=== PATIENT | female | born 1960 | race American Indian/Alaskan Native ===

== ENCOUNTER 2017-05-08 20:48 | Emergency (ER) | payer MEDICAID ==
[2017-05-08 21:08] VITALS: TEMP 98.4; BMI 25.0
[2017-05-08] MEDS ORDERED: Sodium Chloride 0.9% 1,000 ML IV STA (21:47)
--- NOTE | 2017-05-08 22:02 | ED PDOC ---
Arrival/HPI - General Chief Complaint: High Blood Pressure Time Seen by Provider: 05/08/17 21:13 Historian: Patient - History of Present Illness Narrative History of Present Illness (Text): 05/08/17 22:35 Abbey Ayala is a 56 year old female, whose past medical history includes hyperlipidemia and alcohol abuse, presents to the Emergency department complaining of lightheadedness and having pain on the left lateral side that is worse when she breathes and moves. Patient reports she had been feeling aggravated and agitated while walking to the store, while being near the fire department she felt weak as if she was about to pass out, but a jogger operator caught her. The jogger operator then took her blood pressure and was 190/60. Patient admits to drinking alcohol prior to arrival and when she arrived to the Emergency department she felt pain on the lateral left side and is worse with inhalation. She did not feel the pain before. Patient denies chest pain, shortness of breath, headache, fever, chills, cough, nausea, vomiting, diarrhea , abdominal pain, dizziness or lightheadedness. Time/Duration: Prior to Arrival Symptom Onset: Sudden Symptom Course: Unchanged Modifying Factors (Text): left lateral pain is worse with inhalation Context: Walking, Street Associated Symptoms (Text): weakness, lightheadedness, and left lateral pain Past Medical History - Provider Review Nursing Documentation Reviewed: Yes - Infectious Disease Hx of Infectious Diseases: None - Hematological/Oncological Hx Cancer: Yes (ovarian ca -- chemo) - Psychiatric Hx Substance Use: Yes - Anesthesia Hx Anesthesia: No Family/Social History - Physician Review Nursing Documentation Reviewed: Yes Family/Social History: Unknown Family HX Smoking Status: Current Some Days Smoker Hx Alcohol Use: Yes Frequency of alcohol use: Daily Hx Substance Use: Yes Substance used: heroine/cocaine -- last used 2 yrs ago Allergies/Home Meds Allergies/Adverse Reactions: Allergies No Known Allergies Allergy (Verified 05/08/17 21:08) Home Medications: Home Meds Medication Instructions Recorded Confirmed No Known Home Med 05/08/17 05/08/17 Review of Systems - Review of Systems Constitutional: Fatigue Eyes: absent: Vision Changes Respiratory: absent: SOB Cardiovascular: absent: Chest Pain Gastrointestinal: absent: Abdominal Pain, Diarrhea, Nausea, Vomiting Genitourinary Female: absent: Dysuria Musculoskeletal: Other (left lateral pain, worse with inhalation) Neurological: Other (lightheadedness). absent: Dizziness Physical Exam Vital Signs Reviewed: Yes Vital Signs Temp Pulse Resp BP Pulse Ox 05/09/17 00:29 89 17 147/86 99 05/08/17 21:26 107 H 18 136/82 97 05/08/17 21:07 98.4 F 110 H 18 127/81 97 Temperature: Afebrile Blood Pressure: Normal Pulse: Tachycardic Respiratory Rate: Normal Appearance: Positive for: Well-Appearing, Comfortable, Other (ETOH on breath) Pain Distress: None Mental Status: Positive for: Alert and Oriented X 3 - Systems Exam Head: Present: Atraumatic, Normocephalic Pupils: Present: PERRL Extroacular Muscles: Present: EOMI Conjunctiva: Present: Normal Mouth: Present: Moist Mucous Membranes Pharnyx: Present: Normal. No: ERYTHEMA, EXUDATE Neck: Present: Normal Range of Motion Respiratory/Chest: Present: Clear to Auscultation, Good Air Exchange, Tender to Palpation (ttp around the 7th rib in the left axillary line). No: Respiratory Distress, Accessory Muscle Use Cardiovascular: Present: Regular Rate and Rhythm, Normal S1, S2. No: Murmurs Abdomen: Present: Normal Bowel Sounds. No: Tenderness, Distention, Peritoneal Signs Back: Present: Normal Inspection Upper Extremity: Present: Normal Inspection. No: Cyanosis, Edema Lower Extremity: Present: Normal Inspection. No: Edema Neurological: Present: GCS=15, CN II-XII Intact, Speech Normal Skin: Present: Warm, Dry, Normal Color. No: Rashes Psychiatric: Present: Alert, Oriented x 3, Normal Insight, Normal Concentration Medical Decision Making ED Course and Treatment: 05/08/17 21:35 Impression: 56 year old female with lightheadedness and left lateral pain. Differential Diagnosis included but are not limited to: ETOH vs. Anxiety vs. Pulmonary embolism (less likely) Plan: -- EKG -- Chest X-ray -- Labs -- Urinalysis -- Toradol, Xanax, and Sodium Chloride -- Reassess and disposition. Progress Notes: EKG: Ordered, reviewed, and independently interpreted the EKG. Rate : 90 BPM Rhythm : NSR Interpretation : Normal interval, normal axis. No ST/T changes. 05/09/17 01:02 Patient with noted history with alcohol on breath and feeling dizzy as if about to pass out. EKG is normal and admits to feeling stressed. She was given toradol and xanax and IVF and is feeling much better. Etoh level was 201; other labs, including d-dimer and cardiac iso were normal. 05/09/17 01:04 Repeat vitals are normal and has a pmd. By [place] Syncope Rule, patient is safe for d/c to f/u pmd. Additionally, given the presence of alcohol, it is highly likely that the alcohol played a significant role in the near syncopal episode - ok for d/c. 05/09/17 01:11 Patient is fully sober for d/c and is being d/c with family. - Lab Interpretations Lab Results: 05/08/17 22:10 05/08/17 22:10 Lab Results 05/08/17 22:10: Alcohol, Quantitative 201 H 05/08/17 22:10: Sodium 142, Potassium 4.4, Chloride 97, Carbon Dioxide 29, Anion Gap 20, BUN 18, Creatinine 0.8, Est GFR ( Amer) > 60, Est GFR (Non- Af Amer) > 60, Random Glucose 76, Calcium 9.8, Magnesium 1.7, Total Bilirubin 1.0, AST 69 H, ALT 38, Alkaline Phosphatase 120, Lactate Dehydrogenase 517, Total Creatine Kinase 84, Troponin I 0.01, Total Protein 9.0 H, Albumin 4.7, Globulin 4.2, Albumin/Globulin Ratio 1.1, Lipase 63 05/08/17 22:10: Urine Color Yellow, Urine Appearance Clear, Urine pH 6.0, Ur Specific [place] >= 1.030, Urine Protein Trace H, Urine Glucose (UA) Negative, Urine Ketones Negative, Urine Blood Small H, Urine Nitrate Negative, Urine Bilirubin Negative, Urine Urobilinogen 0.2, Ur Leukocyte Esterase Negative, Urine RBC 0 - 2, Urine WBC 0 - 2, Ur Epithelial Cells 0 - 2, Urine Bacteria Few , Urine Other Mucus 05/08/17 22:10: PT 11.4, INR 1.06, APTT 27.5, D-Dimer, Quantitative 0.24 05/08/17 22:10: WBC 6.1, RBC 3.64, Hgb 12.7, Hct 37.0, MCV 101.6, MCH 34.9, MCHC 34.3, RDW 15.3 H, Plt Count 203, MPV 8.6, Gran % 35.8 L, Lymph % (Auto) 54.4 H, Nance % (Auto) 5.2, Eos % (Auto) 4.1, Baso % (Auto) 0.5, Gran # 2.19, Lymph # 3.3, Nance # 0.3, Eos # 0.3, Baso # 0.03 I have reviewed the lab results: Yes - RAD Interpretation Radiology Orders: 05/08/17 21:48 CHEST PORTABLE [RAD] Stat - EKG Interpretation Interpreted by ED Physician: Yes Type: 12 lead EKG - Medication Orders Current Medication Orders: Discontinued Medications Alprazolam (Xanax) 0.25 mg PO STAT STA PRN Reason: Protocol Stop: 05/08/17 21:47 Last Admin: 05/08/17 22:17 Dose: 0.25 mg Sodium Chloride (Sodium Chloride 0.9%) 1,000 mls @ 999 mls/hr IV .Q1H1M STA Stop: 05/08/17 22:47 Last Admin: 05/08/17 22:17 Dose: 999 mls/hr Ketorolac Tromethamine (Toradol) 30 mg IVP STAT STA Stop: 05/08/17 21:48 Last Admin: 05/08/17 22:17 Dose: 30 mg - Scribe Statement The provider has reviewed the documentation as recorded by the Scribe 05/08/2017 Claire Ching Provider Scribe Attestation: All medical record entries made by the Scribe were at my direction and personally dictated by me. I have reviewed the chart and agree that the record accurately reflects my personal performance of the history, physical exam, medical decision making, and the department course for this patient. I have also personally directed, reviewed, and agree with the discharge instructions and disposition. Disposition/Present on Arrival - Present on Arrival Any Indicators Present on Arrival: No History of DVT/PE: No History of Uncontrolled Diabetes: No Urinary Catheter: No History of Decub. Ulcer: No History Surgical Site Infection Following: None - Disposition Have Diagnosis and Disposition been Completed?: Yes Diagnosis: Alcohol abuse, Near syncope Disposition: HOME/ ROUTINE Disposition Time: 12:45 Patient Plan: Discharge Patient Problems: Current Active Problems Problem Status Onset Alcohol abuse Acute Near syncope Acute Condition: GOOD Discharge Instructions (ExitCare): Abuse of Alcohol (ED) Additional Instructions: Avoid alcohol use. Drink plenty of fluids. Follow up with your primary care doctor. Return to the emergency department if any new concerning symptoms. Referrals: Alcoholics Anonymous [Outside] - Follow up with primary Forms: [employer] (Greek)
[2017-05-08 22:22] LABS: URINE BILIRUBIN NEGATIVE (NEGATIVE); URINE BLOOD SMALL (NEGATIVE); URINE GLUCOSE (UA) NEGATIVE (NEGATIVE); URINE KETONE NEGATIVE (NEGATIVE); URINE LEUKOCYTE ESTERASE NEGATIVE Leu/uL (NEGATIVE); URINE PROTEIN TRACE mg/dL (<30 mg/dL); URINE UROBILINOGEN 0.2 E.U./dL (<1 E.U./dL)
[2017-05-08 22:24] LABS: BASO # 0.03 K/mm3 (0.0-2.0); BASO % 0.5 % (0.0-3.0); EOS # 0.3 (0.0-0.7); EOS % 4.1 % (1.5-5.0); GRAN # 2.19 (1.4-6.5); GRAN % 35.8 % (50.0-68.0); LYMPH # 3.3 (1.2-3.4); LYMPH % 54.4 % (22.0-35.0); MEAN CELL VOLUME 101.6 fl (80.0-105.0); MEAN CORPUSCULAR HEMOGLOBIN 34.9 pg (25.0-35.0); MEAN CORPUSCULAR HGB CONC 34.3 g/dl (31.0-37.0); MEAN PLATELET VOLUME 8.6 fl (7.0-11.0); MONO # 0.3 (0.1-0.6); MONO % 5.2 % (1.0-6.0); RED CELL DISTRIBUTION WIDTH 15.3 % (11.5-14.5); WHITE BLOOD COUNT 6.1 10^3/ul (4.5-11.0)
[2017-05-08 22:25] LABS: URINE APPEARANCE CLEAR (CLEAR); URINE COLOR YELLOW (YELLOW)
[2017-05-08 22:32] LABS: ALB/GLOB RATIO 1.1 (1.1-1.8); ALKALINE PHOSPHATASE 120 U/L (38-133); ALT/SGPT 38 U/L (7-56); AST/SGOT 69 U/L (15-39); BLOOD UREA NITROGEN 18 mg/dL (7-21); CALCIUM 9.8 mg/dL (8.4-10.5); CARBON DIOXIDE 29 mmol/L (21-33); CHLORIDE 97 mmol/L (95-110); GFR AFRICAN-AMERICAN > 60; GLUCOSE,RANDOM 76 mg/dL (70-110); LIPASE 63 U/L (23-300); MAGNESIUM 1.7 mg/dL (1.7-2.2); POTASSIUM 4.4 mmol/L (3.6-5.0); SODIUM 142 mmol/L (132-148)
[2017-05-08 22:44] LABS: INR 1.06 (0.93-1.08); PARTIAL THROMBOPLASTIN TIME 27.5 Seconds (23.7-30.8)
[2017-05-08 22:47] LABS: D DIMER 0.24 mg/L FEU (0-0.50)
[2017-05-08 22:51] LABS: URINE BACTERIA FEW (NEG); URINE EPITHELIAL CELLS 0 - 2 /hpf (0-5); URINE RBC 0 - 2 /hpf (0-2); URINE WBC 0 - 2 /hpf (0-6)
[2017-05-08 23:19] LABS: TROPONIN I 0.01 ng/mL
[2017-05-09 00:31] VITALS: BP 147/86; PULSE 89; RESP 17; O2SAT 99
--- NOTE | 2017-05-09 10:07 | RAD ---
HISTORY: syncope COMPARISON: No prior. FINDINGS: LUNGS: No active pulmonary disease. PLEURA: No significant pleural effusion identified, no pneumothorax apparent. CARDIOVASCULAR: Normal. OSSEOUS STRUCTURES: No significant abnormalities. VISUALIZED UPPER ABDOMEN: Normal. OTHER FINDINGS: None. IMPRESSION: No active disease.
--- NOTE | 2017-05-09 19:31 | CARD ---
APPROVED REPORT EKG Measurement Heart [id number] <Conclusion> Normal sinus rhythm Possible Left atrial enlargement Borderline ECG
== END 2017-05-09 01:10 | disposition home or self-care (01) ==
LOC: ED 20:48
DX: F10.10 Alcohol abuse, uncomplicated (principal); R55 Syncope and collapse
CPT/HCPCS: 71010; 80053; 80320; 81001; 82550; 83615; 83690; 83735; 84484; 85025; 85378; 85610; 85730; 93005; 96374; 99285; J1885; J7040